=== PATIENT | female | born 1990 | race Two or more races ===

== ENCOUNTER 2024-06-29 12:16 | Emergency (ER) | payer MEDICAID ==
[~2024-06-29] VITALS: Ht 170.2 cm; Wt 68.2 kg
[2024-06-29 12:20] VITALS: BP 100/70; PULSE 109; RESP 18; TEMP 98.7; O2SAT 100
[2024-06-29] MEDS ORDERED: GABA-1181 PO (12:21)
[2024-06-29 13:00] LABS: APPEARANCE,URINE HAZY (CLEAR); BILIRUBIN,URINE NEGATIVE (NEGATIVE); COLOR,URINE LIGHT YELLOW (YELLOW); GLUCOSE, URINE (UA) NEGATIVE (NEGATIVE); KETONES,URINE TRACE mg/dL (NEGATIVE); LEUKOCYTE ESTERASE ,URINE LARGE (NEGATIVE); NITRATE,URINE NEGATIVE (NEGATIVE); OCCULT BLOOD,URINE LARGE (NEGATIVE); PH,URINE 6.5 (5.0-8.0); PROTEIN,URINE 30-70 mg/dL (NEGATIVE); SPECIFIC GRAVITIY, URINE 1.015 (1.003-1.030); UROBILINOGEN,URINE <=1.0 mg/dL (<=1.0)
[2024-06-29 13:27] LABS: RBC,URINE 51-100 /HPF (0-2)
[2024-06-29 13:28] LABS: BACTERIA,URINE Moderate /HPF (None Seen)
[2024-06-29 13:29] LABS: SQUAMOUS EPITHELIAL CELL,UR Many /LPF (None Seen)
== END 2024-06-29 14:37 | disposition left against medical advice (07) ==
LOC: EMS 12:16
DX: R10.32 Left lower quadrant pain (principal); Z53.21 Procedure and treatment not carried out due to patient leaving prior to being seen by health care provider
CPT/HCPCS: 81001; 87086; 87186